=== PATIENT | female | born 1970 | race Two or more races ===

== ENCOUNTER 2024-10-19 12:22 | Emergency (ER) | payer MEDICAID, SELFPAY ==
[2024-10-19 12:38] VITALS: BP 127/86; PULSE 68; RESP 19; TEMP 36.9; O2SAT 98
--- NOTE | 2024-10-19 13:17 | XR_ITS ---
Examination: Pelvic ultrasound, transabdominal, complete Technique: Transabdominal ultrasound of the pelvis performed using grayscale imaging Date and time of exam: October 19, 2024 1431 hours INDICATIONS: Pelvic pain and abnormal vaginal bleeding beginning 5 days ago FINDINGS: Uterus 10.8 x 4.4 x 6.6 cm Endometrial stripe 11 mm No uterine mass or intrauterine gestation Right ovary 3.1 x 2.2 x 2.9 cm arterial flow Left ovary 2.0 x 1.3 x 1.9 cm arterial flow No fluid in the cul-de-sac IMPRESSION: Endometrial stripe is abnormally thickened if the patient is postmenopausal If the patient is postmenopausal recommend transvaginal pelvic sonography follow-up
[2024-10-19 13:29] LABS: Collection Type, Urine Clean Catch
--- NOTE | 2024-10-19 13:34 | PD.EDVAGBL ---
ED OB Contraction Preg RMI/HPI General Chief complaint: Vaginal Bleeding Stated complaint: HEAVY VAG BLEEDING X1 WEEK Time Seen by Provider: 10/19/24 12:53 Source: patient Arrival date/time: 10/19/24 12:22 This is a 54-year-old female presents to the emergency department with complaints of intermittent vaginal bleeding for 1 week. Patient reports she is postmenopausal has not had a menses for over a year. Has not followed up with [facility]. Denies any other concerns or symptoms. Mode of arrival: ambulatory Related Data Previous Rx's ?Medication ?Instructions ?Recorded albuterol sulfate 90 mcg/actuation 2 puff inhalation QID #8.5 grams 01/20/23 aerosol inhaler azithromycin 250 mg tablet See Rx Instructions PO .COMPLEX #6 01/20/23 tabs cephalexin 500 mg capsule 500 mg PO QID #28 caps 07/03/23 azithromycin 250 mg tablet See Rx Instructions PO .COMPLEX #6 05/29/24 (Zithromax) tabs prednisone 50 mg tablet 50 mg PO QDAY #5 tabs 05/29/24 ferrous sulfate 325 mg (65 mg 325 mg PO QDAY #30 tabs 10/19/24 iron) tablet,delayed release Allergies Allergy/AdvReac Type Severity Reaction Status Date / Time morphine Allergy Verified 07/03/23 19:57 Review of Systems Review of Systems Systems Reviewed: All systems reviewed, normal except as documented Narrative Review of Systems: Gen: No fever, no chills, no weight loss EYES: No discharge, no visual changes, no pain HEENT: No ear pain, no congestion, no sore throat PULM: No shortness of breath, no cough, no congestion CV: No chest pain, no dyspnea on exertion, no palpitations GI: No nausea, no vomiting, no diarrhea, no pain, no constipation : No frequency, no urgency, no dysuria, +Vaginal bleeding Musc/skel: No joint pain, no back pain Skin: No rash Psyc: No hallucinations, no depression Heme/Lymph: No easy bleeding or bruising tendencies Neuro: No weakness, no headache ED Exam Narrative Physical exam: General: Sittiing in Exam table in no acute distress, answering questions appropriately HENT: normocephalic, atraumatic, EOMI, PERRLA, moist mucous membranes Chest: chest wall is nontender Cardiac: regular rate and rhythm, normal S1 and S2, no murmurs, rubs, or gallops, capillary refill ?2 seconds Pulmonary: clear to auscultation bilaterally, no wheezing, crackles, or rhonchi Abdominal: active bowel sounds, soft, nontender, nondistended Neuro: A&OX3, CN II-XII intact, sensation grossly intact bilaterally in UE and LE. Skin: no rashes, no ecchymosis Ext: no lower extremity edema Course Quality Measures none Orders Category Date Time Status US pelvic complete Stat Exams 10/19/24 13:17 Completed CBC Stat Lab 10/19/24 13:44 Completed Comprehensive Metabolic Panel Stat Lab 10/19/24 13:44 Completed HCG,Qualitative Serum Stat Lab 10/19/24 13:44 Completed Type and Screen Stat Lab 10/19/24 13:44 Completed Urinalysis Stat Lab 10/19/24 13:19 Completed Urine Culture Stat Lab 10/19/24 13:19 Received Vital Signs Vital signs: Vital Signs Temperature 98.5 F 10/19/24 12:38 Pulse Rate 68 10/19/24 12:38 Respiratory Rate 19 10/19/24 12:38 Blood Pressure 127/86 H 10/19/24 12:38 Pulse Oximetry (%) 98 10/19/24 12:38 Oxygen Delivery Method Room Air 10/19/24 12:38 Vaginal Bleeding MDM Narrative MDM Narrative: 54-year-old female evaluated in the emergency department for abnormal vaginal bleeding for 1 week. Patient reports she has is menopausal. CBC demonstrates anemia, most likely iron deficiency. Ultrasound demonstrates thickened endometrium which is abnormal. I strictly advised patient she needs to make a follow-up appointment with her PCP or [facility] for an endometrial biopsy. She does report she has not had a cervical screening for many years. Advised the importance of cervical Paps. adVisidra we will make an appointment on Tuesday for follow-up care. ER strict precautions given Patient data External records reviewed:: [facility] previous records Clinical information provided by:: patient Social determinants that could affect healthcare access:: none Patient has the following chronic illnesses:: None How is presenting disease/condition affected by chronic disease/condition?: no chronic disease Evaluation data The following diagnostics were reviewed and interpreted by me:: lab results and radiology exam(s) Lab and/or radiology exams considered but not ordered:: No Interpretation Summary: CBC anemia, platelets are normal, no bandemia. No leukocytosis No electrolyte imbalance. Examination: Pelvic ultrasound, transabdominal, complete Technique: Transabdominal ultrasound of the pelvis performed using grayscale imaging Date and time of exam: October 19, 2024 1431 hours INDICATIONS: Pelvic pain and abnormal vaginal bleeding beginning 5 days ago FINDINGS: Uterus 10.8 x 4.4 x 6.6 cm Endometrial stripe 11 mm No uterine mass or intrauterine gestation Right ovary 3.1 x 2.2 x 2.9 cm arterial flow Left ovary 2.0 x 1.3 x 1.9 cm arterial flow No fluid in the cul-de-sac IMPRESSION: Endometrial stripe is abnormally thickened if the patient is postmenopausal If the patient is postmenopausal recommend transvaginal pelvic sonography follow-up Medications / Prescriptions Medications or Prescriptions considered but not ordered:: No Medication administrations:: No Consultations Consultation(s) initiated? (list below): No Diagnosis Vaginal Bleeding Differential Diagnosis: missed , threatened , dysfunctional uterine bleeding, menometrorrhagia, incomplete and vaginal bleeding Most likely diagnosis given after review of the tests above:: Abnormal postmenopausal bleeding Admission Indicated Admission indicated?: not indicated Admission Request Was there a request for admission?: No Disposition Plan Disposition Plan: Discharge Discharge Attestation Discharge Attestation: The patient and all family members were given an opportunity to ask questions and understood the discharge instructions. Discharge instructions specifically effects, indications for sooner follow up or return to the emergency department, and the expected course of current diagnosis. Patient condition: Stable Discharge Plan Plan Patient Disposition: HOME (Self Care) Patient condition on transfer: Stable Prescriptions/Referrals Prescriptions/Med Rec: New ferrous sulfate 325 mg (65 mg iron) tablet,delayed release (DR/EC) 325 mg PO QDAY Qty: 30 0RF No Action albuterol sulfate 90 mcg/actuation HFA aerosol inhaler 2 puff inhalation QID Qty: 8.5 0RF azithromycin 250 mg tablet See Rx Instructions .ROUTE .COMPLEX Qty: 6 0RF Rx Instructions: For 250 mg dose pack: take 500 mg today (day 1), then 250 mg for 4 days (days 2-5) cephalexin 500 mg capsule 500 mg PO QID Qty: 28 0RF azithromycin [Zithromax] 250 mg tablet See Rx Instructions .ROUTE .COMPLEX Qty: 6 0RF Rx Instructions: For 250 mg dose pack: take 500 mg today (day 1), then 250 mg for 4 days (days 2-5) prednisone 50 mg tablet 50 mg PO QDAY Qty: 5 0RF Referrals: William Trinidad MD [Primary Care Provider] - In 1 week Problem List Clinical Impression: Dysfunctional uterine bleeding, Abnormal vaginal bleeding in postmenopausal patient Patient/Caregiver Discharge Instructions Discharge Activity: activity as tolerated Education Materials: ED Dysfunctional Uterine Bleeding Additional Instructions: Es muy importante que consulte con dozier obstetra y ginec?logo para recibir atenci?n de seguimiento si es posible que necesite un Biopsia endometrial que se puede realizar de forma ambulatoria. Te di arjun copia de tu ultrasonido por favor. -Por favor comience con sulfato ferroso para la anemia. Aumentar los alimentos ricos en paul. Regrese al departamento de emergencias si los s?ntomas empeoran y cambian dozier condici?n. is very important that you follow-up with your [facility] [employer] [facility] TECHNICIAN for follow-up care you might need a Endometrial biopsy which can be done in the outpatient basis. I gave you a copy of your ultrasound please -Please start ferrous sulfate for anemia. Increase iron food rich foods. Return the emergency department with any worsening symptoms change in condition. Print Language: Greenlandic Stand Alone Forms: Melody Award Info., Work/School Release, Patient Portal Info Letter PA/SANDY Supervising Physician KHADIJAH/SANDY Supervising Physician: Dr Ramos
[2024-10-19 13:39] LABS: Bacteria,Urine 1+; Bilirubin,Urine Negative (Negative); Blood,Urine 3+ (Negative); Clarity,Urine Clear (Clear/Hazy); Color,Urine Colorless (Lt Yel-Yel); Glucose, Urine Negative (Negative); Ketones,Urine Negative (Negative); Leukocyte Esterase,Urine Negative (Negative); Nitrite,Urine Negative (Negative); Protein,Urine Trace (Neg - Trace); RBC,Urine 12 /hpf (0-3); Specific Gravity,Urine 1.004 (1.001-1.035); Squamous Epithelial Cell,Urine < 1 /hpf (0-5); Urobilinogen,Urine Negative mg/dL (0.0-1.0); WBC,Urine 2 /hpf (0-5)
[2024-10-19 13:55] LABS: Basophils % (Auto) 0 % (0-2.5); Eosinophils # (Auto) 0.2 Thou/mm3 (0.0-0.5); Eosinophils % (Auto) 3 % (0-10); Hematocrit 29.9 % (36.0-46.0); Hemoglobin 9.9 g/dL (12.0-16.0); Immature Granulocytes % (Auto) 0 % (0-0); Immature Granulocytes Auto 0.01 Thou/mm3 (0.00-0.00); Lymphocytes # (Auto) 2.3 Thou/mm3 (1.0-4.8); Lymphocytes % (Auto) 39 % (10-50); Mean Corpuscular HGB Conc 33.1 g/dl (31.0-37.0); Mean Corpuscular Hemoglobin 26.8 pg (25.0-35.0); Mean Corpuscular Volume 81 fL (80-100); Monocytes # (Auto) 0.4 Thou/mm3 (0.0-0.8); Monocytes % (Auto) 6 % (0-12); Neutrophils # (Auto) 2.9 Thou/mm3 (1.8-7.7); Neutrophils % (Auto) 51 % (37-80); Nucleated Red Blood Cell % 0 /100 WBC (0); Platelet Count 308 Thou/mm3 (140-440); Red Blood Count 3.69 Miln/mm3 (4.00-5.20); White Blood Count 5.8 Thou/mm3 (3.6-11.0)
[2024-10-19 14:33] LABS: Alanine Aminotransferase 14 U/L (10-49); Albumin, Serum 4.4 gm/dL (3.5-5.0); Albumin/Globulin Ratio 1.5 (1.2-2.2); Alkaline Phosphatase 112 U/L (46-116); Anion Gap 6 (7-16); Aspartate Amino Transferase 20 U/L (0-34); BUN/Creatinine Ratio 23 Ratio (12-20); Bilirubin,Total 0.4 mg/dL (0.3-1.2); Blood Urea Nitrogen 14 mg/dL (9-23); Calcium 8.6 mg/dL (8.3-10.6); Calcium (Corrected) 8.6 mg/dL (8.5-10.1); Carbon Dioxide 24.5 mMol/L (20.0-31.0); Chloride 106 mMol/L (98-107); Creatinine (Component) 0.6 mg/dL (0.6-1.3); Globulin 2.9 gm/dL (2.3-3.5); Glucose 104 mg/dL (74-106); Osmolality,Calculated 272 (275-295); Potassium 3.8 mMol/L (3.4-5.1); Sodium 136 mMol/L (136-145); Total Protein 7.3 gm/dL (5.7-8.2); eGFR > 60 See Note
[2024-10-19 14:42] LABS: HCG,Qualitative Serum Negative
== END 2024-10-19 16:27 | disposition home or self-care (01) ==
PROVIDERS: Nurse Practitioner Primary Care; Emergency Provider Emergency Medicine; PCP Family Medicine
DX: N95.0 Postmenopausal bleeding (principal); R93.89 Abnormal findings on diagnostic imaging of other specified body structures
CPT/HCPCS: 36415; 76856; 80053; 81001; 84703; 85025; 86850; 86900; 86901; 87086; 99284

== ENCOUNTER 2024-12-20 16:39 | Emergency (ER) | payer MEDICAID, SELFPAY ==
[2024-12-20 17:01] VITALS: BP 127/53; PULSE 73; RESP 18; TEMP 37.1; O2SAT 97; BMI 26.9
--- NOTE | 2024-12-20 17:06 | XR_ITS ---
Examination: PA lateral chest 2 views TECHNIQUE: Upright PA lateral chest 2 views Exam date and time: December 20, 2024 1722 hours Comparison May 28, 2024 INDICATIONS: Difficulty breathing beginning 2 weeks ago. FINDINGS: Normal heart size Lungs are clear. The osseous structures are intact IMPRESSION: No active disease
--- NOTE | 2024-12-20 17:06 | PD.EDRME ---
Rapid Medical Screening Exam RME Arrival date/time: 12/20/24 16:39 54-year-old female history of asthma presents emergency department complains of cough, congestion, runny nose Chief Complaint: Shortness of Breath/Dyspnea Time Seen by Provider: 12/20/24 16:56 Vital signs: Vital Signs Temperature 98.8 F 12/20/24 17:01 Pulse Rate 73 12/20/24 17:01 Respiratory Rate 18 12/20/24 17:01 Blood Pressure 127/53 L 12/20/24 17:01 Pulse Oximetry (%) 97 12/20/24 17:01 Oxygen Delivery Method Room Air 12/20/24 17:01
[2024-12-20 19:32] VITALS: BP 133/62; PULSE 63; RESP 17; TEMP 36.6; O2SAT 99
--- NOTE | 2024-12-20 20:49 | EDNOTE_ITS ---
ED SOB =RME/HPI General Chief Complaint: Shortness of Breath/Dyspnea Stated Complaint: DIFFICULTY BREATHING X 2WKS; HX ASTHMA Time Seen by Provider: 12/20/24 16:56 Arrival date/time: 12/20/24 16:39 RME / HPI RME / HPI Narrative: 54-year-old female history of asthma presents emergency department complains of cough, congestion, runny nose. Also complained of shortness of breath, has been ongoing for the last 2 weeks, severity moderate. Patient denies any fever denies chest pain and coughing. She had a history of asthma. Told me that she ran out of her inhaler. Related Data Previous Rx's ?Medication ?Instructions ?Recorded albuterol sulfate 90 mcg/actuation 2 puff inhalation QID #8.5 grams 01/20/23 aerosol inhaler azithromycin 250 mg tablet See Rx Instructions PO .COMPLEX #6 01/20/23 tabs cephalexin 500 mg capsule 500 mg PO QID #28 caps 07/03/23 azithromycin 250 mg tablet See Rx Instructions PO .COMPLEX #6 05/29/24 (Zithromax) tabs prednisone 50 mg tablet 50 mg PO QDAY #5 tabs 05/29/24 ferrous sulfate 325 mg (65 mg 325 mg PO QDAY #30 tabs 10/19/24 iron) tablet,delayed release albuterol sulfate 90 mcg/actuation 2 inh inhalation Q6H PRN shortness 12/20/24 breath activated powder inhaler of breath or wheezing #1 ea (ProAir RespiClick) prednisone 50 mg tablet 50 mg PO QDAY 7 days #7 tabs 12/20/24 Allergies Allergy/AdvReac Type Severity Reaction Status Date / Time morphine Allergy Verified 12/20/24 16:40 Review of Systems Review of Systems Narrative Review of Systems: Review of system reviewed and within normal limits except mentioned in HPI ED Exam Narrative Physical exam: VITAL SIGNS: Reviewed. GENERAL APPEARANCE: Alert and interactive, follows commands, no acute distress, HEAD AND FACE: Non-traumatic. ENT: PERRL, pink conjunctivitis, eyelid no trauma, Mucous membrane moist. NECK: Supple, nontender, no nuchal rigidity. CHEST: No tenderness, no crepitus, no paradoxical movement, no retractions. LUNGS: Clear, well ventilated, symmetric, no rales, no wheezing, no ronchi, no stridor, good breath sounds bilaterally. HEART: Regular rate, regular rhythm, no murmur, no gallops. ABDOMEN: Soft, positive bowel sounds, nondistended, no guarding, nontender, no rebound, no masses, RECTAL: Deferred. GENITAL: Deferred. NEUROLOGICAL: Gross motor function intact sensory function intact, Appropriate for age. MUSCULOSKELETAL: low back nontender, full range of motion. EXTREMITIES: Nontender, full range of motion. SKIN: Color pink, dry, no rash, no lacerations, no abrasions, no contusions. LYMPHATICS: Deferred. Course Quality Measures none Orders Category Date Time Status Bedside Influenza A&B Antigen Test NOW Care 12/20/24 17:06 Completed XR chest 2V Stat Exams 12/20/24 17:06 Completed predniSONE Med 12/20/24 20:46 Discontinued 60 mg PO X1 ONE Vital Signs Vital signs: Vital Signs Temperature 98.8 F 12/20/24 17:01 Pulse Rate 73 12/20/24 17:01 Respiratory Rate 18 12/20/24 17:01 Blood Pressure 127/53 L 12/20/24 17:01 Pulse Oximetry (%) 97 12/20/24 17:01 Oxygen Delivery Method Room Air 12/20/24 17:01 Shortness of Breath / Dyspnea MDM Narrative MDM Narrative:: 54-year-old female history of asthma presents emergency department complains of cough, congestion, runny nose. Also complained of shortness of breath, has been ongoing for the last 2 weeks, severity moderate. Patient denies any fever denies chest pain and coughing. She had a history of asthma. Told me that she ran out of her inhaler. Chest x-ray came back unremarkable no infiltrates no pneumothorax no hemothorax.. Patient was given prednisone in the emergency room. She does not need nebulization at this time I did not hear any wheezing. Patient is satting 99% on room air. Patient data External records reviewed:: None Clinical information provided by:: patient Social determinants that could affect healthcare access:: none Patient has the following chronic illnesses:: asthma How is presenting disease/condition affected by chronic disease/condition?: exacerbated by Evaluation data The following diagnostics were reviewed and interpreted by me:: radiology exam(s) Lab and/or radiology exams considered but not ordered:: None Interpretation Summary: I personally reviewed and interpreted the x-ray of this patient. There is no acute abnormalities found, no infiltrates no pneumothorax no hemothorax normal chest x-ray. Review of other structures was without significant abnormal findings also. I additionally reviewed the radiologist report and agree with the interpretation. Medications / Prescriptions Medications or Prescriptions considered but not ordered:: None Medication administrations:: Medication Administration History Discontinued Medications Prednisone (Prednisone 20 Mg Tablet) 60 mg PO X1 ONE Stop: 12/20/24 20:47 Prednisone Consultations Consultation(s) initiated? (list below): No Consultation #1 (Physician, Specialty, Details): None Diagnosis Shortness of Breath Differential Diagnosis: acute exacerbation of chronic obstructive airways disease, community acquired pneumonia and asthma with exacerbation Most likely diagnosis given after review of the tests above:: Shortness of breath, cough, history of asthma Admission Indicated Admission indicated?: not indicated Explain why admission is indicated or not indicated:: Stable Admission Request Was there a request for admission?: No Disposition Plan Disposition Plan: Discharge Discharge Attestation Discharge Attestation: The patient was given an opportunity to ask questions and understood the discharge instructions. Discharge instructions specifically effects, indications for sooner follow up or return to the emergency department, and the expected course of current diagnosis. Patient condition: Stable Discharge Plan Plan Patient Disposition: HOME (Self Care) Disposition Comment: Stable Prescriptions/Referrals Prescriptions/Med Rec: New ProAir RespiClick 90 mcg/actuation aerosol powdr breath activated 2 inh inhalation Q6H PRN (Reason: shortness of breath or wheezing) Qty: 1 0RF prednisone 50 mg tablet 50 mg PO QDAY 7 Days Qty: 7 0RF No Action ferrous sulfate 325 mg (65 mg iron) tablet,delayed release (DR/EC) 325 mg PO QDAY Qty: 30 0RF albuterol sulfate 90 mcg/actuation HFA aerosol inhaler 2 puff inhalation QID Qty: 8.5 0RF azithromycin 250 mg tablet See Rx Instructions .ROUTE .COMPLEX Qty: 6 0RF Rx Instructions: For 250 mg dose pack: take 500 mg today (day 1), then 250 mg for 4 days (days 2-5) cephalexin 500 mg capsule 500 mg PO QID Qty: 28 0RF azithromycin [Zithromax] 250 mg tablet See Rx Instructions .ROUTE .COMPLEX Qty: 6 0RF Rx Instructions: For 250 mg dose pack: take 500 mg today (day 1), then 250 mg for 4 days (days 2-5) prednisone 50 mg tablet 50 mg PO QDAY Qty: 5 0RF Referrals: William Trinidad MD [Primary Care Provider] - In 1 week Problem List Clinical Impression: Cough, Shortness of breath, History of asthma Patient/Caregiver Discharge Instructions Discharge Activity: activity as tolerated Education Materials: ED Shortness of Breath (Dyspnea) Additional Instructions: Thank you for the opportunity for serving you today. You are stable for discharged . You are advised to: Follow-up with your PCP in 1 to 2 days Return to ED for worsening of symptoms Increase oral fluids Take medication as prescribed Print Language: Macanese Stand Alone Forms: Melody Award Info., Patient Portal Info Letter PA/ACADEMIC SERVICES PROFESSIONAL Supervising Physician PA/SANDY Supervising Physician: MD Cande
[2024-12-20] MEDS: predniSONE 20 MG TABLET 60 MG PO (20:52)
[2024-12-20 21:00] VITALS: RESP 18
== END 2024-12-20 21:01 | disposition home or self-care (01) ==
PROVIDERS: Emergency Provider Emergency Medicine; PCP Family Medicine
DX: J45.909 Unspecified asthma, uncomplicated (principal)
CPT/HCPCS: 71046; 87400; 99283; J7512